=== PATIENT | female | born 1955 | race African-American/Black ===

== ENCOUNTER 2019-02-06 09:13 | Outpatient (CLI) | payer BC ==
--- NOTE | 2019-02-06 10:53 | MRI ---
MRI lumbar spine noncontrast: HISTORY: Lumbar radiculopathy. Low back pain radiating down the left leg, x3 years COMPARISON: None FINDINGS: Appropriate T1 marrow signal intensity of the lumbar vertebra. Vertebral body heights are maintained. No fracture. No significant STIR hyperintensity to suggest vertebral body edema or ligamentous injury. 2.9 mm of anterolisthesis of L3 upon L4 and 4.3 mm of anterolisthesis of L4 upon L5. T2 hyperintensity in the left left renal cortex, measures 1.1 cm. Visualized solid organs are otherwi se unremarkable. There is a symmetric signal intensity of the paraspinal muscles Limited evaluation of the T1 and T2 hyperintensity in the left hemipelvis measuring 2.6 cm. T12-L1:Adequate disc hydration. No significant central canal stenosis or neural foraminal narrowing. L1-L2:Adequate disc hydration. Small left and right paracentral disc bulges. Ligament flavum thickeni ng and facet hypertrophy are present. Mild central canal stenosis. Bilaterally, neural foramina are patent. L2-L3:Mild loss of disc space height. There is desiccation with a central posterior annular T2 and ST IR hyperintensity compatible with a fissure. Ligamentum flavum thickening and facet hypertrophy are present. Mild central canal stenosis. Mild right and mild to moderate left foraminal narrowing. L3-L4:Desiccation with mild loss of disc space height. Generalized disc bulge, ligament flavum thicke ewa and facet hypertrophy result in severe central canal stenosis. There is fluid in both facet joints, left greater than right. Moderate right and left neural foraminal narrowing. 6 mm right sided synovial cyst adds to the overall degree of central canal stenosis. L4-L5:Desiccation without significant loss of disc space height. Broad-based disc bulge, ligament fla vum thickening and facet hypertrophy result in severe central canal stenosis. There is fluid in both facet joints. Severe right and moderate to severe left foraminal narrowing. L5-S1:Adequate disc hydration. No significant central canal stenosis. There is bilateral facet hypert rophy. Mild bilateral neural foraminal narrowing. IMPRESSION: 1. Moderate to severe central canal stenosis at L3-L4. Severe central canal stenosis at L4-L5. 2. Severe right and moderate to severe left foraminal narrowing at L4-L5. Moderate bilateral foramina l narrowing at L3-L4. 3. Incompletely evaluated T1 and T2 hyperintensity in the left hemipelvis. Focal fat collection is rea spected. Correlation made with CT from 09/13/2017 does demonstrate a prominent fatty mass. Correlate clinically. Consider [employer] consultation. CODE T Transcribed Date/Time: 02/06/2019 11:17 AM
--- NOTE | 2019-02-06 11:24 | MMO ---
Bilateral MAMMO Bilat Screen [facility]. CLINICAL HISTORY: Patient is 63 years old and is seen for screening. The patient has no family history of breast cancer. The patient has no personal history of cancer. VIEWS: The views performed were: bilateral craniocaudal with tomosynthesis and bilateral mediolateral oblique with tomosynthesis. FILMS COMPARED: The present examination has been compared to a prior imaging study performed at [facility] on 09/29/2016. MAMMOGRAM FINDINGS: There are scattered fibroglandular densities. There are stable benign appearing calcifications seen in both breasts. There are also vascular calcifications. There are no suspicious masses, suspicious calcifications, or new areas of architectural distortion. IMPRESSION: THERE IS NO MAMMOGRAPHIC EVIDENCE OF MALIGNANCY. A ROUTINE FOLLOW-UP MAMMOGRAM IN 1 YEAR IS RECOMMENDED. THE RESULTS OF THIS EXAM WERE SENT TO THE PATIENT. ACR BI-RADS Category 2 - Benign finding MAMMOGRAPHY NOTE: 1. A negative mammogram report should not delay a biopsy if a dominant of clinically suspicious mass is present. 2. Approximately 10% to 15% of breast cancers are not detected by mammography. 3. Adenosis and dense breasts may obscure an underlying neoplasm.
== END 2019-02-06 09:14 | disposition home or self-care (01) ==
LOC: BICMRI 09:13
PROVIDERS: ATTEND Family Medicine
DX: Z12.31 Encounter for screening mammogram for malignant neoplasm of breast (principal); M54.16 Radiculopathy, lumbar region; M48.061 Spinal stenosis, lumbar region without neurogenic claudication; M48.8X4 Other specified spondylopathies, thoracic region
CPT/HCPCS: 72148; 77063; 77067

== ENCOUNTER 2019-08-15 08:46 | Outpatient (CLI) | payer BC ==
--- NOTE | 2019-08-15 09:58 | RAD ---
LUMBAR SPINE FOUR VIEWS: 08/15/2019 HISTORY: Low back pain. COMPARISON: None. FINDINGS: Degenerative scoliotic curvature of the lumbar spine noted. Suture lines are noted within the left ab domen. There is prominent multilevel lower lumbar spine facet hypertrophy, including the L3-L4 through L5-S1 levels. On the neutral lateral exam there is anterolisthesis at L3-L4 measuring 7 mm, L4-L5 measurin g 10 mm and L5-S1 measuring 5 mm. With flexion anterolisthesis measures 7 mm at L3-L4, 12 mm at L4-L5 and 7 mm at L5-S1. Extension imaging demonstrates anterolisthesis of 6 mm at L3-L4, 9 mm at L4-L5 an d 4 mm at L5-S1. IMPRESSION: Multilevel lumbar spine degenerative change, as detailed above. POS: [facility]
== END 2019-08-15 08:47 | disposition home or self-care (01) ==
LOC: TBSIIMAG 08:46
PROVIDERS: ATTEND Surgery
DX: M54.5 Low back pain (principal); M47.816 Spondylosis without myelopathy or radiculopathy, lumbar region
CPT/HCPCS: 72110

== ENCOUNTER 2021-04-22 10:15 | Outpatient (CLI) | payer BC | END 2021-04-22 10:16 | disposition home or self-care (01) | LOC: BICMAMMO 10:15 | PROVIDERS: ATTEND Family Medicine | DX: Z12.31 Encounter for screening mammogram for malignant neoplasm of breast (principal); N64.89 Other specified disorders of breast | CPT/HCPCS: 77063; 77067 ==

== ENCOUNTER 2021-04-30 09:17 | Outpatient (CLI) | payer BC | END 2021-04-30 09:18 | disposition home or self-care (01) | LOC: BICMAMMO 09:17 | PROVIDERS: ATTEND Family Medicine | DX: R92.8 Other abnormal and inconclusive findings on diagnostic imaging of breast (principal) | CPT/HCPCS: G0279 ==

== ENCOUNTER 2025-03-27 12:27 | Emergency (ER) | payer MEDICARE, MEDICAID ==
[~2025-03-27 12:27] MED LIST: Iopamidol-370 76% 500 ML MDV (1 ML CHARGE) ONE
[2025-03-27] MEDS ORDERED: Ketorolac Tromethamine 30 MG (1 mL) VIAL ONE (12:49)
[2025-03-27 13:10] LABS: CAUTI Indications for Culture Pelvic or flank pain; Glucose, Urine (Dipstick) 200 mg/dL (Negative); Leukocyte 500 Leu/uL (Negative); Protein, Urine (Dipstick) Negative (Neg-Trace); RBC/HPF 0-3 HPF (0-3); Specific Gravity, Urine 1.014 (1.002-1.036); WBC/HPF Greater than 50 HPF (0-3)
[2025-03-27 13:32] LABS: Bacteria/HPF 1+ HPF (None Seen)
[2025-03-27 13:34] LABS: Urine Culture Reflex Yes Yes
[2025-03-27] MEDS ORDERED: cefTRIAXone (ROCEPHIN) 2 GM VIAL ONE (14:49)
[2025-03-27 15:21] LABS: #Basophils 0.03 10x3/uL (0.0-0.2); #Eosinophils 0.16 10x3/uL (0.0-0.7); #Monocytes 0.45 10x3/uL (0.11-0.59); #Neutrophils 3.35 10x3/uL (1.40-6.50); %Basophils 0.5 % (0.0-1.0); %Eosinophils 2.8 % (0.0-10.0); %Lymphocytes 31.2 % (21.0-51.0); %Monocytes 7.7 % (0.0-10.0); %Neutrophils 57.6 % (42.0-75.0); Hematocrit 41.5 % (36.0-47.0); Hemoglobin 13.4 g/dL (12.0-16.0); Mean Corpuscular Hemoglobin 28.9 pg (27.0-31.0); Mean Corpuscular Volume 89.4 fL (78.0-98.0); Platelet Count 209 10x3/uL (130-400); Red Blood Cell (RBC) Count 4.64 mill/uL (4.20-5.40); White Blood Cell (WBC) Count 5.81 10x3/uL (4.8-10.8)
[2025-03-27 15:46] LABS: ALT (SGPT) 10 U/L (Less than 34); AST (SGOT) 12 U/L (11-34); Albumin 3.2 g/dL (3.1-4.5); Alkaline Phosphatase 85 U/L (40-110); Anion Gap 12 mmol/L (10-20); BUN (Urea Nitrogen) 10 mg/dL (9.8-20.1); Bilirubin, Total 0.2 mg/dL (0.3-1.2); Calc. Creatinine Clearance 0 mL/min (70-130); Calcium 8.5 mg/dL (7.8-10.44); Carbon Dioxide 27 mmol/L (23-31); Chloride 108 mmol/L (98-107); Globulin 3.0 g/dL (2.4-3.5); Glucose 84 mg/dL (80-115); Lipase 13 U/L (8-78); Magnesium 2.1 mg/dL (1.6-2.6); Potassium 4.5 mmol/L (3.5-5.1); Sodium 142 mmol/L (136-145)
[2025-03-27] MEDS ORDERED: Fleet Saline Enema 133 ML BOT ONE (20:01)
== END 2025-03-27 21:24 ==
LOC: ERS 12:27
DX: K56.41 Fecal impaction (principal); N39.0 Urinary tract infection, site not specified; I25.10 Atherosclerotic heart disease of native coronary artery without angina pectoris; E11.9 Type 2 diabetes mellitus without complications; E78.5 Hyperlipidemia, unspecified; Z86.73 Personal history of transient ischemic attack (TIA), and cerebral infarction without residual deficits; Z79.82 Long term (current) use of aspirin; Z79.899 Other long term (current) drug therapy
CPT/HCPCS: 74177; 80053; 81001; 82962; 83605; 83690; 83735; 84484; 85025; 87086; 93005; J0696; J1885; 36416; 87077; 96374; 96375; Q9967